=== PATIENT | male | born 1995 | race Caucasian/White ===

== ENCOUNTER 2018-01-13 09:27 | Outpatient (CLI) | payer OTHER ==
--- NOTE | 2018-01-13 10:58 | ULT ---
ULTRASOUND GALLBLADDER RIGHT UPPER QUADRANT: HISTORY: Abdominal pain. COMPARISON: None. FINDINGS: Visualized portions of the pancreas are unremarkable. Hepatic echotexture is normal. The common bile duct is normal. Hepatic vein is patent with antegrade flow. The gallbladder wall th ickness is normal. The right kidney measures 9.9 x 4.6 x 4.3 cm without mass, hydronephrosis, or abnormal calcifications . IMPRESSION: Normal exam. POS: [facility]
== END 2018-01-13 09:28 | disposition home or self-care (01) ==
LOC: SCSULT 09:27
PROVIDERS: ATTEND Internal Medicine
DX: R10.10 Upper abdominal pain, unspecified (principal); R79.89 Other specified abnormal findings of blood chemistry
CPT/HCPCS: 76705